=== PATIENT | female | born 1955 | race Caucasian/White ===

== ENCOUNTER → 2017-01-02 | Outpatient (CLI) | payer BC ==
[~2017-01-02] MED LIST: ANAPROX DS550 M1 PO; ASPIR-LOW81 MG PO; CHANTIX1 EACH PO; DOXYCYCLINE HYC50 MG; PERCOCET 5/31 TABLET PO; VITAMIN B-6100 MG PO
== END | disposition home or self-care (01) ==
LOC: NUC 07:40
DX: E04.1 Nontoxic single thyroid nodule (principal); E07.89 Other specified disorders of thyroid
CPT/HCPCS: 78014; 78999; A9512; A9531